=== PATIENT | male | born 1990 | race Hispanic/Latino ===

== ENCOUNTER 2022-04-08 20:13 | Emergency (ER) | payer SELFPAY ==
[2022-04-08] MEDS ORDERED: hydrOXYzine 25 MG TAB ONE (21:07)
== END 2022-04-08 23:16 | disposition home or self-care (01) ==
LOC: MADERS 20:13
DX: F41.0 Panic disorder [episodic paroxysmal anxiety] (principal); R11.2 Nausea with vomiting, unspecified; F17.210 Nicotine dependence, cigarettes, uncomplicated
CPT/HCPCS: 71045